=== PATIENT | female | born 1985 | race Hispanic/Latino ===

== ENCOUNTER 2024-09-02 21:23 | Emergency (ER) | payer BC, MEDICAID ==
[~2024-09-02] VITALS: Ht 149.9 cm; Wt 98.4 kg
[~2024-09-02 21:23] MED LIST: ALLO100T PO; AMLO2.5T2 PO; ASPI-1197 PO; CEFD300C3 PO; CLOP75TA32 PO; CYCL5TAB3 PO; FERR210T PO; INSLAN SQ; INSNOV SQ; LEVO175T9 PO; SEMA0.258 SQ; TORS20TA4 PO
[2024-09-02 21:27] VITALS: BP 181/84; PULSE 89; RESP 20; TEMP 98.7
--- NOTE | 2024-09-02 22:37 | NUR ---
PATIENT REPORTS DRAINAGE FROM NON FUNCTIONAL DIALYSIS GRAFT TO L THIGH ONSET TODAY. WAS ADVISED BY PCP TO BE EVALUATED AT AN ED FOR INFECTION
--- NOTE | 2024-09-02 22:38 | NUR ---
NO REDNESS OR DRAINAGE NOTED TO L THIGH DIALYSIS GRAFT AT THIS TIME
--- NOTE | 2024-09-02 22:45 | NUR ---
GOOD PEDAL PULSE PRESENT WITH DOPPLER TO L FOOT
--- NOTE | 2024-09-03 00:03 | HMCIMG ---
US VENOUS DOPPLER UNILATERAL HISTORY: Pain COMPARISON: None TECHNIQUE: Left lower extremity venous Doppler ultrasound study was performed. FINDINGS: The left common femoral, femoral, popliteal, and posterior tibial veins are visualized. Normal flow with augmentation and compressibilities are demonstrated. Left greater saphenous vein is patent. IMPRESSION: 1. No evidence of deep venous thrombosis is seen.
--- NOTE | 2024-09-03 00:06 | HMCIMG ---
US SOFT TISSUE GROIN REASON: r/o abscess left groin/upper leg. COMPARISON: None TECHNIQUE: Left thigh ultrasound study was performed. FINDINGS: There is fracture noted in the left thigh area appears to be occluded. Complex hypoechoic areas are seen surrounding the graft measuring 1.3 x 1.1 x 4 cm may be related to abscess versus hematoma. IMPRESSION: Findings as described above.
[2024-09-03] MEDS ORDERED: CEPH500B PO (00:33)
--- NOTE | 2024-09-03 00:33 | ERN ---
ED Note History of Present Illness Stated Complaint: C/O OPEN WOUND TO LT UPPER LEG AFTER GRAFT Chief Complaint: Lower Extremity Pain/Injury Time Seen by MD: 21:31 Time Seen by Midlevel: 21:36 Dictation: 39-year-old female with a history of ESRD, diabetes, hypertension, thyroid coming in complaining of a wound along her graft on her left leg that started a few days ago. Patient states she had the graft placed in January. Patient received dialysis on Sunday today's foaming any fever, nausea, vomiting, diarrhea. Patient states also he has a history of DVTs and she was to be placed on heparin. Allergies: Coded Allergies: No Known Drug Allergies (Unverified Allergy, Unknown, 10/06/14) Home Meds Active Scripts Cefdinir (Cefdinir) 300 Mg Capsule, 1 CAP PO q48hr for 5 Days, #5 CAP 0 Refills Prov:TYREE HOLGUIN MD 08/01/24 Amlodipine Besylate (Norvasc 2.5MG Tab) 2.5 Mg Tablet, 2.5 MG PO DAILY for 30 Days, #30 TAB 1 Refill Prov:TYREE HOLGUIN MD 08/01/24 Reported Medications Aspirin (Aspirin) 81 Mg Tab.chew, 1 TAB PO DAILY 07/31/24 Ferric Citrate (Ferric Citrate) 210 Mg Iron Tablet, 210 MG PO AD, TAB 07/31/24 Clopidogrel Bisulfate (Clopidogrel) 75 Mg Tablet, 1 TAB PO DAILY 07/31/24 Cyclobenzaprine HCl (Cyclobenzaprine HCl) 5 Mg Tablet, 1 TAB PO HS 07/31/24 Semaglutide (Ozempic) 0.25 Mg/0.368 Ml Pen.injctr, 25 UNITS SQ AD TAKES EVERY Sunday07/31/24 Torsemide (Torsemide) 20 Mg Tablet, 4 TAB PO BID 07/31/24 Allopurinol (Allopurinol) 100 Mg Tablet, 1 TAB PO DAILY 07/31/24 Levothyroxine Sodium (Levothyroxine Sodium) 175 Mcg Tablet, 1 TAB PO DAILY 07/31/24 Insulin Glargine,Hum.rec.anlog (Lantus) 100 Unit/Ml Inj, 100 UNITS SQ BID 07/31/24 Insulin Aspart (Novolog) 100 Unit/Ml Inj, 50 UNITS SQ TID 07/31/24 Past Medical History Past Medical History: Diabetes-Type II, Fibromyalgia, Hypertension, Renal Failure Additional Past Medical Hx: CKD ON DIALYSIS Surgical History: Other, Surgical History Other: GRAFT SX LMP: Aug 23, 2024 Review of System Dictation Constitutional: Negative for fever,chills, and weight loss Eyes: Negative for injury, pain,redness, and discharge ENT: Negative for injury,pain or swelling Cardiovascular: Negative for chest pain, palpitations, and edema Respiratory: Negative for shortness of breath, cough, and wheezing, Abdomen/GI: Negative for abdominal pain, nausea, vomiting, diarrhea, and constipation Back: Negative for injury and pain : Negative for injury, bleeding and discharge MS/Extremity: Negative for injury and deformity Skin: Negative for rash, and discoloration, wound to left upper thigh Neuro: Negative for headache, weakness, numbness, tingling, and seizure Psych: Negative for suicide ideation, homicidal ideation, and hallucinations Review of Systems: was completed Initial Vital Sign VS Vital Signs Date Time Temp Pulse Resp B/P (MAP) Pulse Ox O2 Delivery O2 Flow Rate FiO2 09/02/24 21:27 98.8 89 20 181/84 99 Room Air Physical Exam Dictation General: awake, alert, NAD Head/Face: Normocephalic, atraumatic Eyes: PERRL, EOMI, vision at baseline ENT: oral cavity clear, TMs clear, no signs of infection Neck: Trachea midline, supple, no nuchal rigidity Cardiovascular: RRR, normal S1/S2, No MRGs, no JVD Respiratory: CTAB, no respiratory distress, No rales or wheezes Abdomen: Soft, non-tender, non-distended, normal bowel sounds, no guarding or rebound. Skin: Warm, dry, normal turgor, no rash there is a blister-like wound to the left upper thigh, draining serosanguineous, there is mild erythema, no streaking, no induration. Pedal pulse of the left extremity intact MS/Extremity: Pulses equal, no cyanosis, neurovascular intact, FROM Neuro: COAx4, GCS 15, strength 5/5, CN 2-12 intact, normal cerebellar exam, normal gait, Psych: Normal behavior, mood, and affect normal Results (Laboratory/Radiology) Labs Reviewed?: Yes Ultrasound Comment: [place] [id number] [id number] IMAGING REPORT Signed PATIENT: LEONARDO KRAUS MR#: [id number] : 1985 SEX: F AGE: 39 LOCATION: ED ORDER 29 STATUS: REG ER [facility] REPORT#: [id number] SERVICE 28 REASON: r/o abscess left groin/upper leg ORDERING PHYSICIAN: JOVANI ALVARENGA NP PROCEDURE: VENOUS UNI - US VENOUS DOPPLER UNILATERAL US VENOUS DOPPLER UNILATERAL HISTORY: Pain COMPARISON: None TECHNIQUE: Left lower extremity venous Doppler ultrasound study was performed. FINDINGS: The left common femoral, femoral, popliteal, and posterior tibial veins are visualized. Normal flow with augmentation and compressibilities are demonstrated. Left greater saphenous vein is patent. IMPRESSION: 1. No evidence of deep venous thrombosis is seen. DICTATED BY: PERNELL WELDON MD DATE: 09/02/242357 ELECTRONICALLY SIGNED BY: PERNELL WELDON MD DATE: 09/03/[address] [id number] IMAGING REPORT Signed PATIENT: LEONARDO KRAUS MR#: [id number] : 1985 SEX: F AGE: 39 LOCATION: ED ORDER 29 STATUS: REG ER REPORT#: [id number] SERVICE 28 REASON: r/o abscess left groin/upper leg ORDERING PHYSICIAN: JOVANI ALVARENGA NP PROCEDURE: SOFT GROIN - US SOFT TISSUE GROIN US SOFT TISSUE GROIN REASON: r/o abscess left groin/upper leg. COMPARISON: None TECHNIQUE: Left thigh ultrasound study was performed. FINDINGS: There is fracture noted in the left thigh area appears to be occluded. Complex hypoechoic areas are seen surrounding the graft measuring 1.3 x 1.1 x 4 cm may be related to abscess versus hematoma. IMPRESSION: Findings as described above. DICTATED BY: PERNELL WELDON MD DATE: 09/03/24 0001 ELECTRONICALLY SIGNED BY: PERNELL WELDON MD DATE: 09/03/24 0006 ED Course ED Course Orders Procedure Category Date Status Time Us Soft Tissue Groin US 09/02/24 Resulted 22:29 Us Venous Doppler US 09/02/24 Resulted Unilateral 22:29 Vital Signs Date Time Temp Pulse Resp B/P (MAP) Pulse Ox O2 Delivery O2 Flow Rate FiO2 09/02/24 21:27 98.8 89 20 181/84 99 Room Air Medical Decision Making MDM MDM: 39-year-old female with a history of ESRD, diabetes, hypertension, thyroid coming in complaining of a wound along her graft on her left leg that started a few days ago. Patient states she had the graft placed in January. Patient received dialysis on Sunday today's foaming any fever, nausea, vomiting, diarrhea. Patient states also he has a history of DVTs and she was to be placed on heparin. Ultrasound shows negative for DVT.Ultrasound of the soft tissue shows hypoechoic area seen surrounding the graft measuring 1.3 x 1.1 x 4 cm may be related to abscess versus hematoma. Discussed findings with the ER MD, patient will be okay prescribe antibiotics and have patient follow up outpatient. Differential diagnosis: Abscess, cellulitis, DVT Rationale: Tests considered and ordered secondary to shared decision making include: Previous outside records reviewed: Old ER visits. Risk of complication and/or morbidity or mortality of patient management: None Medications-Per medication reconciliation Need for hospitalization: Patient does not meet criteria for hospitalization. Need for emergency major/minor surgery: No There are no social concerns with this patient. Prescription drug management Prescriptions will include symptomatic care Patient's prior external medical records from other ER visits were reviewed by me as indicated. Prior testing and results from previous visits were reviewed. Prior tests were taken into account with medical decision making and resource utilization, independent historian/historians were used to obtain complete medical history. I independently interpreted the test that were performed, results were reviewed by me and considered findings on radiology if ordered. Medical management and examination interpretation discussions were had by me with other qualified healthcare professionals as indicated for the patient's c are. DX & DISP Disposition: Discharge Departure Impression: Primary Impression: Cellulitis Additional Impression: Abscess Condition: Stable Scripts Cephalexin Monohydrate (Keflex) 500 Mg Cap 500 MG PO QID for 7 Days, #28 CAP Prov: JOVANI ALVARENGA [employer] ARTIST 09/03/24 Additional Instructions: You can take Tylenol or Motrin for pain. Please follow up with your primary doctor in 1-2 days. Return if symptoms worsen. Referrals: DARLINE HOLLY DO (PCP) Time of Disposition: 00:33 I have reviewed the case, and I agree with, Diagnosis and Plan JOVANI ALVARENGA NP Sep 03, 2024 00:33
== END 2024-09-03 00:41 | disposition home or self-care (01) ==
LOC: EDH 21:23
DX: I12.0 Hypertensive chronic kidney disease with stage 5 chronic kidney disease or end stage renal disease (principal); E11.22 Type 2 diabetes mellitus with diabetic chronic kidney disease; N18.6 End stage renal disease; L03.116 Cellulitis of left lower limb; M79.7 Fibromyalgia; M79.662 Pain in left lower leg; Z79.02 Long term (current) use of antithrombotics/antiplatelets; Z79.4 Long term (current) use of insulin; Z79.82 Long term (current) use of aspirin; Z79.85 Long-term (current) use of injectable non-insulin antidiabetic drugs; Z79.890 Hormone replacement therapy; Z99.2 Dependence on renal dialysis; Z79.899 Other long term (current) drug therapy
CPT/HCPCS: 76882; 93971; 99284